=== PATIENT | female | born 1975 | race Caucasian/White ===

== ENCOUNTER 2024-06-20 21:53 | Inpatient (IN) | payer OTHER, SELFPAY ==
--- NOTE | ~2024-06-20 | FL_ITS ---
EXAMINATION: FL GUIDANCE ONLY HISTORY: PINNING LEFT MIDDLE FINGER COMPARISON: Correlation is made to plain films of the left hand dated 06/20/2024. TECHNIQUE: Fluoroscopy time: 37.4 seconds. Cumulative Dose: 1.0321 mGy. DAP: 0.0624 mGym2 Images: 2. FINDINGS: Images demonstrate internal fixation of the previously seen fracture of the proximal phalanx of the middle finger with 2 pins. FL/FL guidance in OR IMPRESSION: Fluoroscopy during procedure. Please see procedure report for additional information. Electronically signed by: Zak Johnson MD 06/22/2024 08:47 AM [facility] [place]
--- NOTE | ~2024-06-20 | XR_ITS ---
CLINICAL HISTORY: swelling, bit by dog 3 view left hand Comparison: None Findings: Angulated fracture of the proximal 3rd phalanx. Soft tissue swelling and mild subcutaneous gas surrounds the 3rd metacarpophalangeal joint. No radiopaque foreign body. IMPRESSION: 1. Angulated fracture of the proximal 3rd phalanx. 2. Soft tissue swelling and mild subcutaneous gas surrounds the 3rd metacarpophalangeal joint. This document has been electronically signed by: Prakash Greenberg MD, PHD on 06/20/2024 23:10:34
[2024-06-20 22:00] VITALS: BP 160/87; PULSE 87; RESP 20; TEMP 36.6; O2SAT 100; BMI 29.0
[2024-06-21] VITALS (10 sets, daily range): BP systolic 113–169; BP diastolic 58–95; PULSE 56–86; RESP 15–20; TEMP 36.3–37.1; O2SAT 96–100; BMI 33.7
[2024-06-21 01:04] LABS: MANUAL DIFF FLAG NO
[2024-06-21] MEDS: Ampicillin Sodium/Sulbactam Na 3 GM in 0.9 % Sodium Chloride 100 ML IV ×4 (01:04→20:10)
[2024-06-21] MEDS: Diphth,Pertus(ACell),Tet Adult 0.5 ML SYRINGE IM (01:04)
[2024-06-21 01:05] LABS: Basophils Absolute Auto 0.1 X10*3/uL (0.0-0.2); Basophils Percent Auto 0.6 % (0-2); Eosinophils Absolute Auto 0.2 X10*3/uL (0.0-0.4); Eosinophils Percent Auto 1.3 % (0-4); Hemoglobin 12.9 g/dl (12.0-16.0); Imm Gran Abs Auto 0.05 X10*3/uL (0.00-0.03); Imm Gran Pct Auto 0.4 % (0.0-0.4); Lymphocytes Percent Auto 15.5 % (20-40); Mean Corpuscular HGB Conc 33.1 g/dl (31.0-35.0); Mean Corpuscular Hemoglobin 29.7 pg (27.0-33.0); Mean Corpuscular Volume 89.7 fL (80.0-98.0); Mean Platelet Volume 10.8 fL (9.4-12.3); Monocytes Absolute Auto 0.6 X10*3/uL (0.1-1.2); Monocytes Percent Auto 4.8 % (2-11); Neutrophils Absolute Auto 10.1 x10*3/uL (2.0-8.3); Neutrophils Percent Auto 77.4 % (45-73); Platelet Count 264 X10*3/uL (160-400); Red Blood Count 4.35 X10*6/uL (4.20-5.50); Red Cell Distribution Width 13.9 % (11.0-16.0)
[2024-06-21 01:10] LABS: INTERNATIONAL NORM RATIO 0.9 (0.9-1.1); Prothrombin Time 10.8 SEC (10.9-12.4)
[2024-06-21 01:26] LABS: Anion Gap 12 (12-20); Blood Urea Nitrogen 12 mg/dL (9-16); Calcium 9.7 mg/dL (8.4-10.2); Carbon Dioxide 24 mmol/L (22-29); Chloride 107 mmol/L (96-108); Creatinine Clr Calc Pharmacy 95.8; Estimated Glomerular Filt Rate > 60; Glucose Random 109 mg/dL (60-115); Potassium 3.5 mmol/L (3.3-5.1); Sodium 139 mmol/L (135-145)
[2024-06-21 01:31] LABS: HCG Quantitative < 2 mIU/mL
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
[2024-06-21] MEDS: Ibuprofen 600 MG TABLET PO (01:55)
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
[2024-06-21] MEDS: HYDROmorphone HCl 0.5 MG/0.5 ML SYRINGE IVPUSH (04:22)
[2024-06-21] MEDS: Ketorolac Tromethamine 30 MG/ML VIAL IVPUSH ×4 (04:22→21:48)
[2024-06-21] MEDS: 0.9 % Sodium Chloride Flush 3 ML SYRINGE IVFLUSH (08:00)
--- NOTE | 2024-06-21 08:34 | PHA.MEDREC ---
Addendum entered by Beni Christine RPh 06/21/24 09:59: Med rec was reviewed by long. Original Note: Pharmacy Consult ? Medication Reconciliation Pharmacy has completed the medication reconciliation. Spoke with patient to confirm.
[2024-06-21] MEDS: HYDROmorphone HCl 1 MG/ML SYRINGE 0.5 MG IVPUSH ×2 (09:10→20:16)
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
--- NOTE | 2024-06-21 10:04 | P.EN_ITS ---
Event Note Date of Service: 06/21/24 Event Note: The patient was seen and examined. Labs, medications, and imaging were reviewed and discussed with orthopedics and the admitting physician. Assessment: * Angulated fracture of the proximal third phalanx. * Soft tissue swelling with mild subcutaneous gas surrounding the third metacarpophalangeal joint ( from trauma sustained while attempting to break up a dog fight). Plan: * Proceed with surgical intervention today. * Continue close monitoring for signs of infection or complications. * Antibiotic coverage with ampicillin today and change to Augmentin tomorrow for 5 days * Pain management and post-operative care per ortho recommendations. Time Spent With Patient Time: Total time managing care of this patient today ____ minutes.
--- NOTE | 2024-06-21 10:04 | PM.EVENT ---
Event Note Date of Service: 06/21/24 Event Note: The patient was seen and examined. Labs, medications, and imaging were reviewed and discussed with orthopedics and the admitting physician. Assessment: Angulated fracture of the proximal third phalanx. Soft tissue swelling with mild subcutaneous gas surrounding the third metacarpophalangeal joint ( from trauma sustained while attempting to break up a dog fight). Plan: Proceed with surgical intervention today. Continue close monitoring for signs of infection or complications. Antibiotic coverage with ampicillin today and change to Augmentin tomorrow for 5 days Pain management and post-operative care per ortho recommendations. Time Spent With Patient Time: Total time managing care of this patient today ____ minutes.
--- NOTE | 2024-06-21 12:14 | MHC.CM.PN ---
CM met with Patient at bedside, in the ED. Patient is independent and home/self care is her goal. CM has initiated and will follow for dc planning. PCP is from [facility] (a new female doctor she has not seen yet and cannot recall the name). Patient lives in a house with her Boyfriend (who will transport to home at dc) and her 16 year old Son.
--- NOTE | 2024-06-21 13:10 | PC.NURSE ---
Report given to [facility] RN for transfer to OR for procedure within the hour.
--- NOTE | 2024-06-21 13:21 | MHC.SHP ---
Pre-Procedural Eval Section A - 24 Hr Update-Section A only Date of Service: 06/21/24 The patient is an INPATIENT: No Changes since office visit: No Cold of Flu in the past 2 weeks, No New Medical Problems, No Changes in Medication and No Patient answered all questions The patient has been examined within 24 hours of the surgical procedure. The History & Physical has been completed within 30 days and I have reviewed it.: Yes Section B - Complete if H&P > 30 days Chief Complaint: left middle finger fracture Allergies: Allergies Allergy/AdvReac Type Severity Reaction Status Date / Time No Known Allergies Allergy Verified 06/20/24 22:02 Review of Systems Review of Systems Comment: Radiographs: Left middle finger proximal phalanx fracture, apex volar Patient was alert oriented and in no acute distress. Normal sensation to the tips of all digits and cap refill brisk. Visible apex volar deformity of the left middle finger proximal phalanx She has bite wounds directly over the fracture site at the proximal phalanx and then over the dorsal aspect of the middle phalanx of the middle finger It is hard to see if she has other wounds right now as she has some dried blood on her hand. She was able to actively flex and extend the other digits and her wrist without pain. Plan Diagnosis/Plan: Unchanged I have reviewed the history and physical and performed a pertinent physical examination on my patient. No changes have occurred unless specified. Assessment and plan: 1. Left middle finger open proximal phalanx fracture, status post dog bite Date of injury today The risks and benefits of operative treatment were discussed with the patient and the patient wishes to proceed with surgery. These risks include, but are not limited to risk of damage to blood vessels, nerves, tendons, infection, recurrence, incomplete relief of preoperative symptoms, persistent pain, possible need for further surgery and the risks associated with regional blocks and anesthesia. The plan is to take the patient to the operating room today for the following procedures: 1. I&D open proximal phalanx fracture 2. Left middle finger proximal phalanx open reduction internal fixation All of the preoperative paperwork including the consent was filled out today. All the patient's questions were answered. Time Spent With Patient Time: Total time managing care of this patient today ____ minutes.
--- NOTE | 2024-06-21 13:33 | W.PM.OPN ---
Operative Note Operative Note Date of Service: 06/21/24 Narrative: Operative Note Narrative: Preop diagnosis: 1. Left middle finger open proximal finger fracture Postop diagnosis: 1. Left middle finger open proximal phalanx shaft fracture 2. Left ring finger open dorsal PIP joint Procedure: 1. Left middle finger I and D of open proximal phalanx fracture 2. Left middle finger proximal phalanx fracture open reduction internal fixation 3. Left ring finger I and D open PIP joint Surgeon: Dione Palacios MD [employer] Specialist: Kemar DEAN Anesthesia: General Anesthesia Findings: finger fracture Implants: 0.045 K-wires times 2 Tourniquet time: None EBL: Minimal Specimen: None Drains: None Complications: None Disposition: Brought to the recovery room in stable condition Plan: Admit for IV antibiotics overnight Anticipate discharge in a.m. on 10 days of oral antibiotics, Augmentin Follow-up in next week days for a wound check, postop radiographs and for placement in a short-arm finger spica cast or splint Anticipate K-wire removal in 4 weeks based on interval bony healing Educate the patient that full fracture healing anticipated in approximately 8-12 weeks. Indications: The patient is 48 years old with a left middle finger open proximal phalanx fracture status post dog bite today . The risks and benefits of operative treatment, including but not limited to risk of damage to blood vessels, nerves, tendons, infection, recurrence, delayed or nonunion of fracture, persistent pain or numbness, incomplete resolution of preoperative symptoms, or need for further surgery were discussed with the patient and they wished to proceed with surgery. Procedure: Once consent was obtained patient was brought back to the operating suite and placed in the operating table in a supine position. . Perioperative antibiotics and general anesthesia was administered by the anesthesia team. A tourniquet was applied to the proximal aspect of the left upper extremity and the limb was prepped and draped in a standard surgical fashion. The tourniquet was not inflated during the case. The FluoroScan was used during the case to assist with our fracture reduction and placement of all implants. Upon further examining the wound on the dorsal aspect of the ring finger PIP joint, it appears the bite wound entered the PIP joint. I therefore slightly open the PIP joint further and copiously irrigated the PIP joint with normal saline using a 10 mL syringe and an Angiocath. My attention was then turned to the left middle finger. She had an approximately 1.5 cm laceration over the ulnar side of the proximal phalanx. She had another small wound on the radial volar base of the middle finger, and a 3rd wound through the skin at the dorsal aspect of the middle phalanx. All of the irrigations were copiously irrigated with normal saline. The laceration on the side of the proximal phalanx was extended proximally approximately 5 mm . We then dissected down to the level of the fracture and the fracture was debrided using a curette. The fracture and dog bite wounds were then copiously irrigated with normal saline using a 10 mL syringe and an Angiocath. Once satisfied with our I&D I then turned our attention to the fracture. An open reduction was performed on the left middle finger proximal phalanx fracture. I placed a 0.045 K-wire through the ulnar base of the left middle finger proximal phalanx. This was advanced to the fracture site. I then performed an open reduction of the proximal phalanx fracture. The K-wire was then advanced across the fracture site and down the shaft of the proximal phalanx. A 2nd 0.045 K-wire was placed into the radial base of the left middle finger proximal phalanx. This was then advanced distally across the fracture site and into the shaft of the proximal phalanx. Fracture alignment was assessed clinically for angular and rotational alignment. Once satisfied the pins were bent cut short and had pin caps applied. Final fluoroscopic images were then obtained. The wounds were copiously irrigated with normal saline. A digital block was performed with some 1% lidocaine with epinephrine for postop pain control. Some of the bite wounds were loosely closed, to allow for any drainage, with 5 0 Prolene suture. A Sterile dressing and short volar splint extending from the tips of all fingers to the forearm was applied. The patient appears to have tolerated the procedure well and with no complications. All digits were well vascularized at the conclusion of the case.
--- NOTE | 2024-06-21 13:35 | HO.ANESPROP2 ---
HPI - Anesthesia Eval Consult details Narrative: i and D [facility] Active Problems Active Problems: All Active Problems Open fracture of finger of left hand (Acute) Past Medical History Functional capacity: independent ambulation Family History Family history of problems with anesthesia: No Surgical History Surgical History History of appendectomy H/O knee surgery History of Problems with Anesthesia: No Social History Social History Patient Tobacco Use Status: Current someday Tobacco user service: No Meds Allergies Allergy/AdvReac Type Severity Reaction Status Date / Time No Known Allergies Allergy Verified 06/20/24 22:02 Active Medications: Current Medications Acetaminophen (Acetaminophen 325 Mg Tablet) 650 mg PO Q6H PRN PRN Reason: Pain, Mild 1-3,fever,headache Calcium Carbonate (Calcium Carbonate 750 Mg Tab.Chew) 750 mg PO Q4H PRN PRN Reason: Heartburn Enoxaparin Sodium (Enoxaparin Sodium 40 Mg/0.4 Ml Syringe) 40 mg SUBCUT DAILY ELROY Hydromorphone HCl (Hydromorphone Hcl 1 Mg/Ml Syringe) 0.5 mg IVPUSH Q4H PRN; Protocol PRN Reason: Pain, Severe (Pain Scale 7-10) Last Admin: 06/21/24 09:10 Dose: 0.5 mg Ampicillin Sodium/Sulbactam (Sodium 3 gm/ Sodium Chloride) 100 mls @ 200 mls/hr IV Q6H ELROY Ketorolac Tromethamine (Ketorolac Tromethamine 30 Mg/Ml Vial) 30 mg IVPUSH Q6H ELROY Stop: 06/21/24 22:01 Last Admin: 06/21/24 09:10 Dose: 30 mg Magnesium Hydroxide (Milk Of Magnesia 30 Ml Oral.Susp) 30 ml PO DAILY PRN PRN Reason: Constipation Melatonin (Melatonin 3 Mg Tablet) 6 mg PO BEDTIME PRN PRN Reason: Insomnia Ondansetron HCl (Ondansetron Hcl 4 Mg/2 Ml Vial) 4 mg IVPUSH Q8H PRN PRN Reason: Nausea and Vomiting Oxycodone HCl (Oxycodone Hcl Immed Release 5 Mg Tablet) 5 mg PO Q6H PRN PRN Reason: Pain, Moderate(Pain Scale 4-6) Senna (Sennosides 8.6 Mg Tablet) 17.2 mg PO BEDTIME PRN PRN Reason: Constipation Sodium Chloride (0.9 % Sodium Chloride Flush 3 Ml Syringe) 3 ml IVFLUSH QSHIFT ELROY Last Admin: 06/21/24 08:00 Dose: 3 ml Home Medications ?Medication ?Instructions ?Recorded ?Confirmed ?Last Taken ?Type ibuprofen 200 mg tablet 800 mg PO BID PRN Pain 06/21/24 06/21/24 Unknown History Exam Height,Weight and Vital Signs: Height 5 ft 6 in Weight 81.647 kg Last Vital Signs Temp 98.7 F 06/21/24 13:30 Pulse 80 06/21/24 13:30 Resp 20 06/21/24 13:30 BP 133/79 06/21/24 13:30 Pulse Ox 98 06/21/24 13:30 O2 Del Method Room Air 06/21/24 13:30 Pertinent Lab Results Pertinent Lab Results: Laboratory Tests 06/21/24 00:59 WBC 13.0 H RBC 4.35 Hgb 12.9 Hct 39.0 MCV 89.7 MCH 29.7 MCHC 33.1 RDW 13.9 Plt Count 264 MPV 10.8 Immature Gran % (Auto) 0.4 Neut % (Auto) 77.4 H Lymph % (Auto) 15.5 L [place] % (Auto) 4.8 Eos % (Auto) 1.3 Baso % (Auto) 0.6 Lymph # (Auto) 2.0 [place] # (Auto) 0.6 Eos # (Auto) 0.2 Baso # (Auto) 0.1 Abs Immat Gran (auto) 0.05 H Absolute Neuts (auto) 10.1 H Absolute Nucleated RBC 0.000 Nucleated RBC % (auto) 0.0 PT 10.8 L INR 0.9 Sodium 139 Potassium 3.5 Chloride 107 Carbon Dioxide 24 Anion Gap 12 BUN 12 Creatinine 0.79 Estim Creat Clear Calc 95.8 Estimated GFR > 60 Random Glucose 109 Calcium 9.7 Beta HCG, Quant < 2 Airway Mallampati Class: II TM Dist: >3cm Neck ROM: Full Heart: rrr Lungs: cta Assessment and Plan Assessment Anesthesia Assessment: Anesthesia Plan Discussed Final Anesthetic Review Family History of Problems with Anesthesia: No History of Problems with Anesthesia: No NPO: Yes ASA Class: I Final Preanesthetic Review: No Changes in Pt Med Stat, Meds/Allgs Chart Reviewed and Consent Obtained/Reviewed Patient Risk: Low Procedure Risk: Low Anesthetic Plan Anesthetic Plan: GA Disposition: Standard PACU
[2024-06-21] MEDS: ceFAZolin Sodium/Dextrose,Iso 2 GM/50 ML PIGGYBACK IV (13:44)
[2024-06-22] MEDS: 0.9 % Sodium Chloride Flush 3 ML SYRINGE IVFLUSH (00:52)
[2024-06-22] MEDS: Ampicillin Sodium/Sulbactam Na 3 GM in 0.9 % Sodium Chloride 100 ML IV (01:23)
[2024-06-22 07:39] VITALS: BP 119/79; PULSE 61; RESP 16; TEMP 36; O2SAT 99
[2024-06-22] MEDS: oxyCODONE HCl Immed Release 5 MG TABLET PO (07:57)
[2024-06-22] MEDS: Amoxicillin/Potassium Clav 875 MG TABLET PO (07:57)
--- NOTE | 2024-06-22 08:17 | PM.PNORT ---
Subjective Subjective Date of Service: 06/22/24 Interval history: Postop day 1 status post I and D and ORIF of left middle finger, as well as I and D of PIP joint of left ring finger Patient resting comfortably in bed this morning Splint in place Pain well managed No acute events overnight No other acute complaints or concerns at this time Physical Exam Vital Signs: Vital Signs: Last Vital Signs Temp 96.8 F 06/22/24 07:39 Pulse 61 06/22/24 07:39 Resp 16 06/22/24 07:39 BP 119/79 06/22/24 07:39 Pulse Ox 99 06/22/24 07:39 O2 Del Method Room Air 06/22/24 07:39 O2 Flow Rate 6 06/21/24 14:53 BMI result Body Mass Index 33.7 Extrem: Other: Dressing and splint on left hand clean, dry, intact No evidence of surrounding erythema, ecchymosis No evidence of infection Distal sensation intact Capillary refill brisk Procedures Date of Service Date of Service: 06/22/24 Progress Note: A&P Assessment and plan (1) Open fracture of finger of left hand: Status: Acute Plan 1. Status post I and D of left middle and ring fingers, and ORIF of left middle finger DOS 06/21/2024 Patient appears to be recovering well postoperatively Patient is educated about the typical recovery course Patient is educated to keep the splint clean, dry, intact at all times, and to call our office if it gets wet or dirty Patient will follow-up with us in 2 weeks for splint removal and placement into a cast Patient was amenable to this plan Patient was cleared for discharge from orthopedic perspective, should be on Augmentin upon discharge Time Spent With Patient Time: Total time managing care of this patient today ____ minutes. Quality Stroke Does the patient have a stroke diagnosis?: No VTE Prior VTE?: No VTE Risk Level:: Medical - moderate - high VTE Device Contraindication: Treatment Not Indicated VTE Drug Contraindication: N/A - Med Ordered
--- NOTE | 2024-06-22 08:46 | P.DS_ITS ---
DS: Providers Provider Date of Service: 06/22/24 Date of admission: 06/21/24 03:56 Date of discharge: 06/22/24 Primary care physician: None Physician Consults: 06/21/24 07:29 Consult to Orthopedics Routine Consulting Provider: [facility] [place] Orthopedic Surgeons Reason for consultation: open fracture left middle finger DS: Diagnosis Discharge Diagnosis (1) Open fracture of finger of left hand: Status: Acute DS: Summary Hospital Course Hospital Course: admission hpi Chief Complaint: Dog bite to left middle finger and now with pain and swelling Patient is a 48 year old female with no significant past medical history who presented to the emergency room for evaluation after sustaining a dog bite to her left middle finger. She has 2 dogs at home that were fighting and she got i n between them to try break up the fight and unfortunately 1 of her dogs bit her left hand. She sustained a puncture wound to the left middle and ring fingers with resultant bleeding and deformity to her left middle finger which prompted her to come to the emergency room for evaluation. She reports that both the dog the up-to-date on all vaccinations including rabies. She however was not up-to- date on her tetanus vaccine and so got this in the emergency room. Initial imaging studies obtained in the emergency room revealed an angulated fracture of the proximal 3rd phalanx with a soft tissue swelling and mild subcutaneous gas surrounding the 3rd metacarpophalangeal joint. She was started on empiric antibiotics (Unasyn) and admission requested for continued care. Hospital course: The patient was admitted for the management of a dog bite with an open fracture of the left middle finger. She received empiric antibiotic therapy with Unasyn and underwent surgery, including: * Incision and drainage (I&D) of the open proximal phalanx fracture of the left middle finger * Open reduction and internal fixation (ORIF) of the left middle finger proximal phalanx fracture * I&D of the open PIP joint of the left ring finger She is recovering well postoperatively and will be transitioned to oral Augmentin to complete a 7-day course of antibiotics. Follow-up with orthopedics is scheduled for next week. Time Attestation Discharge Coordination Time (in mins): 35 Quality: Safe Use of Opioids Does Pt have an Active Cancer Diagnosis on the Problem List?: No Quality: Stroke Does the patient have a stroke diagnosis?: No Physical Exam Vital Signs: Vital Signs: Last Vital Signs Temp 96.8 F 06/22/24 07:39 Pulse 61 06/22/24 07:39 Resp 16 06/22/24 07:39 BP 119/79 06/22/24 07:39 Pulse Ox 99 06/22/24 07:39 O2 Del Method Room Air 06/22/24 07:39 O2 Flow Rate 6 06/21/24 14:53 BMI result Body Mass Index 33.7 Const: Other: General: AO X 3, no acute distress Resp: CTA bilateral CVS: S1,S2,RRR GI: +BS, NT, no distention Skin: No rash ext: the left hand is splinted Neuro: motor grossly intact Psych: appropriate affect Discharge Plan Discharge Anticipated Discharge Date/Time: 06/22/24 09:27 Patient Disposition: Home, Self-Care Discharge Diagnosis: Open fracture of left middle finger due to dog bite Referrals: Physician,None [Primary Care Provider] - 1 Week Discharge Medications: New amoxicillin-pot clavulanate 875-125 mg Tablet 1 tab PO Q12H Qty: 10 0RF oxycodone 5 mg Tablet 5 mg PO Q6H PRN (Reason: Pain, Moderate(Pain Scale 4-6)) Qty: 14 0RF Rx Instructions: Partial Fill upon patient request. Continued ibuprofen 200 mg Tablet 800 mg PO BID PRN (Reason: Pain) Discharge Orders: Discharge Order (Routine); Ordered 06/22/24 Ordered By: Paco Burroughs Diet: Advance to usual diet Activity on Discharge: As tolerated Stand Alone Forms: Patient Portal Discharge page Print Language: Azeri Care Plan Goals: recovery from dog bite and fracture of left middle finger Health Concerns: same as above Plan of Treatment: take Augmentin as recommended and follow up with Dr. Palacios keep splint as recommended by orthopedic surger Assessment: see above
[2024-06-22 09:16] VITALS: BP 145/65; PULSE 71; RESP 18; TEMP 36.6; O2SAT 97
--- NOTE | 2024-06-22 09:51 | MHC.CM.PN ---
Patient medically cleared for dc home self care via private transport.
== END 2024-06-22 11:25 | disposition home or self-care (01) | DRG 514 ==
LOC: HO.ED 06-21 02:10 → HO.EDOVER 06-21 04:36 → HO.S3 06-21 14:50
PROVIDERS: Orthopaedic Surgery; Physician Assistant; Admitting Provider Internal Medicine; Emergency Provider Emergency Medicine; Visit Provider Internal Medicine
PROC: 0PSV04Z Reposition Left Finger Phalanx with Internal Fixation Device, Open Approach (ICD-10-PCS; CPT 26735; principal; 2024-06-21 13:00)
PROC: 0PSV04Z Reposition Left Finger Phalanx with Internal Fixation Device, Open Approach (ICD-10-PCS; CPT 26735; 2024-06-21 13:00)
DX: S62.613B Displaced fracture of proximal phalanx of left middle finger, initial encounter for open fracture (principal); S61.255A Open bite of left ring finger without damage to nail, initial encounter; W54.0XXA Bitten by dog, initial encounter; F17.210 Nicotine dependence, cigarettes, uncomplicated; Z71.6 Tobacco abuse counseling
CPT/HCPCS: 26735; 26080; 36415; 73120; 80048; 84702; 85025; 85610; 90715; 99221; 99285; J0131; J0295; J0690; J1100; J1171; J1885; J2003; J2004; J2405; J2704; J3010

== ENCOUNTER → 2024-06-20 22:15 | Outpatient (BNV) | payer OTHER, SELFPAY | PROVIDERS: Visit Provider General Practice | DX: S62.613B Displaced fracture of proximal phalanx of left middle finger, initial encounter for open fracture (principal) | CPT/HCPCS: 73120 ==

== ENCOUNTER → 2024-06-21 03:56 | Outpatient (BNV) | payer OTHER, SELFPAY | PROVIDERS: Admitting Provider Internal Medicine; Emergency Provider Emergency Medicine | DX: S62.609B Fracture of unspecified phalanx of unspecified finger, initial encounter for open fracture (principal) | CPT/HCPCS: 26080; 26735; 99024; 99222 ==

== ENCOUNTER → 2024-06-21 03:56 | Outpatient (BNV) | payer OTHER, SELFPAY | PROVIDERS: Admitting Provider Internal Medicine; Emergency Provider Emergency Medicine; Visit Provider Internal Medicine | DX: S62.613B Displaced fracture of proximal phalanx of left middle finger, initial encounter for open fracture (principal); W54.0XXA Bitten by dog, initial encounter | CPT/HCPCS: 99223; 99239; 99499 ==

== ENCOUNTER 2024-07-05 09:14 | Outpatient (REF) | payer OTHER, SELFPAY | END 2024-07-05 09:15 | disposition home or self-care (01) | LOC: HO.HOSX 09:14 | DX: Z13.89 Encounter for screening for other disorder (principal) ==

== ENCOUNTER 2024-07-06 08:31 | Outpatient (REF) | payer OTHER, SELFPAY ==
--- NOTE | ~2024-07-06 | XR_ITS ---
EXAMINATION: XR HAND, LEFT CLINICAL INFORMATION: M79.642 - Pain in left hand COMPARISON: 06/20/2024. TECHNIQUE: PA, lateral, and oblique views of the left hand. FINDINGS: There has been 2 K wires placed transfixing the comminuted, mildly displaced, intra-articular fracture of the proximal third metacarpal. There has been hoahaoism of gross anatomic alignment. Fracture lines are still well visualized, without definite evidence of healing. No articular step-off at the MCP joint level. Previously seen flexion contracture of the third digit has resolved. Soft tissue swelling/laceration involving the proximal radial third digit. XR/XR hand LT min 3V IMPRESSION: Status post K wire pinning of comminuted intra-articular proximal third metacarpal fracture without complication evident. There is been hoahaoism of gross anatomic alignment. Electronically signed by: Dhruv Wright MD 07/09/2024 09:33 AM EDT
== END 2024-07-06 08:32 | disposition home or self-care (01) ==
LOC: HO.HOSX 08:31
DX: M79.642 Pain in left hand (principal); S62.602B Fracture of unspecified phalanx of right middle finger, initial encounter for open fracture
CPT/HCPCS: 29085; 73130

== ENCOUNTER 2024-07-06 13:17 | Outpatient (AMB) | payer OTHER, SELFPAY ==
[2024-07-06 13:23] VITALS: BMI 33.6
--- NOTE | 2024-07-06 13:23 | A.OFFVIS_ITS ---
Vital Signs 07/06/24 13:23 Height 5 ft 6 in Weight 208 lb BMI 33.6 Intake Visit Reasons: PO I and D and ORIF of left MF, DOS 06/21/2024 Intake Note: Charlotte is a 48 year old right hand dominant female who presents today for a post operative visit after undergoing left middle finger I&D and ORIF as well as left ring finger I&D, DOS: 06/21/[address] Palacios s/p dog bite DOI: 06/20/24. Patient reports occasional numbness and tingling. Patient reports pain at a 6-8 on the pain scale. She continues to take Ibuprofen for pain. Allergies No Known Allergies Allergy (Verified 07/06/24 13:23) HPI HPI PO I and D and ORIF of left MF, DOS 06/21/2024: Details: Charlotte is a 48 year old right hand dominant female who presents today for a post operative visit after undergoing left middle finger I&D and ORIF as well as left ring finger I&D, DOS: 06/21/[address] Palacios s/p dog bite DOI: 06/20/24. Patient reports occasional numbness and tingling. Patient reports pain at a 6-8 on the pain scale. Patient reports that this pain in the began when her cast was removed, and then she was in minimal discomfort removal. She continues to take Ibuprofen for pain. [facility] Surgical History History of appendectomy H/O knee surgery Social History Household Members: Significant Other and Children Housing: House Do you presently have visiting nurse or other home services: No Patient Tobacco Use Status: Current someday Tobacco user Tobacco use type: Cigarette Second Hand Smoke Exposure: No service: No Review of Systems Const All systems reviewed & are unremarkable except as noted in HPI and below Physical Exam Vital Signs: BMI result Body Mass Index 33.6 Extrem Other: Patient is alert, oriented, and in no acute distress. Neuro: Normal sensation of the tips of all digits of the left hand at this time Vascular: Cap refill brisk Pain: Patient does report significant tenderness to palpation at the level of the fracture of the left middle finger ROM: Patient was unable to flex at the MCP joint of the left middle finger due to the presence of pins Skin: Well-healing lacerations noted on the middle and ring fingers of the left hand Pin sites clean, dry, intact, no evidence of infection General: No ecchymosis, erythema, or evidence of infection. Psych: Appears grossly normal Affect normal Attitude cooperative Office Procedures Casting/Splints 19192-Rudt/Wrist Cast Application Procedure code (CPT) selection complete Results Reviewed Results Reviewed: X-rays obtained in the office today and independently reviewed by me, Kemar Figueroa PA-C, demonstrate surgically reduced fracture of the proximal phalanx of the left middle finger with all orthopedic hardware in place and in satisfactory clinical alignment. Assessment & Plan Assessment & Plan (1) Open fracture of finger of left hand: Code(s): S62.609B - Fracture of unspecified phalanx of unspecified finger, initial encounter for open fracture Category: Medical Plan 1. Open fracture of left middle finger 2 laceration of the left finger Status post I and D and ORIF DOS 06/21/2024 Patient appears to be recovering well postoperatively Patient is educated about the typical recovery course At this time, patient was placed into a 3 finger ulnar gutter cast Patient is educated on proper cast care and precautions 2 lb weight limit in left hand Patient will follow-up in 2 weeks with repeat x-rays and cast removal, anticipate pulling pins at that time, sooner with any acute concerns Orders: Orders XR hand LT min 3V Today M79.642 - Pain in left hand Medications: Discontinued amoxicillin-pot clavulanate 875-125 mg Discontinued Reason: Patient no longer taking 1 tab PO Q12H 10 tabs 0RF Coding Level of Care Code Global (87889) Diagnoses Open fracture of finger of left hand S62.609B CPT Codes Casting - CPT: 63422-Ulrk/Wrist Cast Application ([id number])
== END 2024-07-06 14:19 | disposition home or self-care (01) ==
LOC: HO.HOS 13:18
DX: S62.613B Displaced fracture of proximal phalanx of left middle finger, initial encounter for open fracture (principal); Z48.89 Encounter for other specified surgical aftercare
CPT/HCPCS: 29085; 99024

== ENCOUNTER → 2024-07-06 13:18 | Outpatient (BNV) | payer OTHER, SELFPAY | PROVIDERS: Visit Provider Radiology Diagnostic Radiology | DX: M79.642 Pain in left hand (principal) | CPT/HCPCS: 73130 ==

== ENCOUNTER 2024-07-09 16:00 | Outpatient (REF) | payer OTHER, SELFPAY | END 2024-07-09 16:01 | disposition home or self-care (01) | LOC: HO.HOSX 16:00 | DX: Z13.89 Encounter for screening for other disorder (principal) ==

== ENCOUNTER 2024-07-10 08:19 | Outpatient (AMB) | payer OTHER, SELFPAY ==
--- NOTE | 2024-07-10 08:47 | MHC.OFFVIS ---
Intake Visit Reasons: PO I &D and ORIF of left MF, DOS 06/21/2024 Intake Note: Charlotte is a 48 year old right hand dominant female who presents today for a post operative visit after undergoing left middle finger I&D and ORIF as well as left ring finger I&D, DOS: 06/21/[address] Dione Palacios s/p dog bite DOI: 06/20/24. On 07/06/24 patient was placed into a 3 finger ulnar gutter cast. She expresses intermittent sharp piercing stabbing pain at the base of her PF. She is requesting a prescription for her pain either Tramadol or Tylenol., Allergies No Known Allergies Allergy (Verified 07/10/24 08:48) HPI HPI PO I &D and ORIF of left MF, DOS 06/21/2024: Details: Charlotte is a 48 year old right hand dominant female who presents today for a post operative visit after undergoing left middle finger I&D and ORIF as well as left ring finger I&D, DOS: 06/21/[address] Dione Palacios s/p dog bite DOI: 06/20/24. On 07/06/24 patient was placed into a 3 finger ulnar gutter cast. She expresses intermittent sharp piercing stabbing pain at the base of her IF. She is requesting a prescription for her pain either Tramadol or Tylenol., [facility] Surgical History History of appendectomy H/O knee surgery Social History Household Members: Significant Other and Children Housing: House Do you presently have visiting nurse or other home services: No Patient Tobacco Use Status: Current someday Tobacco user Tobacco use type: Cigarette Second Hand Smoke Exposure: No service: No Review of Systems Const All systems reviewed & are unremarkable except as noted in HPI and below Physical Exam Extrem Other: Patient is alert, oriented, and in no acute distress. Neuro: Normal sensation of the tips of all digits of the left hand at this time Vascular: Cap refill brisk Pain: Patient does report tenderness to palpation at the level of the fracture of the left middle finger ROM: Patient was unable to flex at the MCP joint of the left middle finger due to the presence of pins Skin: Well-healing lacerations noted on the middle and ring fingers of the left hand Pin sites clean, dry, intact There is some evidence of mild redness around the more ulnar pin site, appears to be more consistent with irritation General: No ecchymosis or other evidence of infection. Psych: Appears grossly normal Affect normal Attitude cooperative Office Procedures Casting/Splints 62815-Dfsd/Wrist Cast Application Procedure code (CPT) selection complete Results Reviewed Results Reviewed: X-rays obtained in the office today and independently reviewed by me, Kemar Figueroa PA-C, demonstrate surgically reduced fracture of the proximal phalanx of the left middle finger with all orthopedic hardware in place and in satisfactory clinical alignment. Assessment & Plan Assessment & Plan (1) Open fracture of finger of left hand: Code(s): S62.609B - Fracture of unspecified phalanx of unspecified finger, initial encounter for open fracture Category: Medical Plan 1. Open fracture of left middle finger 2 laceration of the left finger Status post I and D and ORIF DOS 06/21/2024 Patient appears to be recovering well postoperatively Patient is educated about the typical recovery course Out of an abundance of caution due to redness, patient was prescribed a short course of Augmentin for 7 days At this time, patient was re-placed into a 3 finger ulnar gutter cast Patient is educated on proper cast care and precautions 2 lb weight limit in left hand Patient will follow-up for previously scheduled appointment, anticipate pulling pins at that time, sooner with any acute concerns Orders: Orders XR hand LT min 3V Today M79.642 - Pain in left hand Medications: New amoxicillin-pot clavulanate 875-125 mg 1 tab PO BID 14 tabs 0RF 7 days Discontinued oxycodone Partial Fill upon patient request. Discontinued Reason: Patient no longer taking 5 mg PO Q6H PRN 14 tabs 0RF Pain, Moderate(Pain Scale 4-6) Coding Level of Care Code Global (60263) Diagnoses Open fracture of finger of left hand S62.609B CPT Codes Casting - CPT: 99466-Ugbd/Wrist Cast Application ([id number])
== END 2024-07-10 10:05 | disposition home or self-care (01) ==
LOC: HO.HOS 08:20
DX: S62.613B Displaced fracture of proximal phalanx of left middle finger, initial encounter for open fracture (principal)
CPT/HCPCS: 29085; 99024

== ENCOUNTER → 2024-07-10 08:22 | Outpatient (BNV) | payer OTHER, SELFPAY | PROVIDERS: Visit Provider Radiology Diagnostic Radiology | DX: M79.642 Pain in left hand (principal) | CPT/HCPCS: 73130 ==

== ENCOUNTER 2024-07-10 10:15 | Outpatient (REF) | payer OTHER, SELFPAY ==
--- NOTE | ~2024-07-10 | XR_ITS ---
EXAMINATION: XR HAND 3 OR MORE VIEWS LEFT HISTORY: M79.642 - Pain in left hand COMPARISON: Comparison is made with the prior examination dated 07/06/2024. FINDINGS: Three views of the left hand are submitted. Osseous mineralization is normal. Again seen is internal fixation of a comminuted fracture of the proximal phalanx of the middle finger with 2 K wires. The fracture lines remain visible. The appearance is not significantly changed from the prior study. The joint spaces are preserved. The soft tissues are unremarkable. XR/XR hand LT min 3V IMPRESSION: Internally fixed comminuted fracture of the proximal phalanx of the middle finger without change. Electronically signed by: Zak Johnson MD 07/10/2024 10:32 AM EDT
== END 2024-07-10 10:16 | disposition home or self-care (01) ==
LOC: HO.HOSX 10:15
DX: S62.603D Fracture of unspecified phalanx of left middle finger, subsequent encounter for fracture with routine healing (principal)
CPT/HCPCS: 29085; 73130

== ENCOUNTER 2024-07-20 14:34 | Outpatient (REF) | payer OTHER, SELFPAY ==
--- NOTE | ~2024-07-20 | XR_ITS ---
EXAMINATION: XR HAND 3 OR MORE VIEWS LEFT HISTORY: M79.642 - Pain in left hand COMPARISON: Comparison is made with the prior examination dated 07/10/2024. FINDINGS: Three views of the left hand are submitted. Osseous mineralization is normal. The patient is again noted to be status post internal fixation of a comminuted fracture of the 3rd proximal phalanx with 2 K wire. The fracture lines remain visible. The joint spaces are preserved. The soft tissues are unremarkable. XR/XR hand LT min 3V IMPRESSION: Internal fixation of a comminuted fracture of the proximal phalanx of the middle finger without change. Electronically signed by: Zak Johnson MD 07/23/2024 12:50 PM EDT
--- OUTSIDE RECORDS SUMMARY | 2024-07-20 16:07 | XMS_ITS | Data Portability ---
Author Organization [facility], [address] Address [address] [place] [address] Assessment No assessment recorded. Plan of Treatment Reminders Order Date Submit Date Provider Last Modified By Organization Details Last Modified Time Details Appointments None recorded. Lab None recorded. Referral None recorded. Procedures None recorded. Surgeries None recorded. Imaging None recorded. Medication Orders benzonatate 200 mg capsule 2023 [facility]/Pharmacy #[id number], [address] [facility], [place], [address], 4 10:49:40 Patient TargetsNo targets recorded. Patient Instructions Encounter Date Encounter Id Patient Instructions Last Modified By Organization Details Last Modified Time 03/02/2024 [id number] upper respirator y infection (cold): care instructions [email or web address] Not available 03/02/2024 10:49:38 Reason for Referral None Reported. Problems No Known Problems Medical Equipment None Reported. Allergies No known drug allergies Medications Name Sig Start Date Stop Date Status Note LastModified by Organization Details LastModified Time benzonatate 200 mg capsule Take 1 capsule 3 times a day by oral route for 5 days. active Not Available Not Available Not Avai lable Vitals Date Recorded Body height Body mass index (BMI) Body weight Pain severity - 0-10 verbal numeric rating [Score] - Reported Heart rate Respiratory rate Body temperature Oxygen saturation Oxygen saturation in Arterial blood by Pulse oximetry Systolic blood pressure Diastolic blood pressure Provider Name and Address Organization Details Last Updated DateTime 165.1 cm 31.6 kg/m2 87937.5 5 g 0 66 /min 18 /min 98.7 [degF] 99 % 99 % 124 mm[Hg] 87 mm[Hg] Lisa Ramires DIANNE - [facility] 10:41:18 Social History Question Answer Notes LastModified by Organizat ion Details LastModified Time Tobacco Smoking Status Never Smoker Lisa Ramires DIANNE perez [facility] 03/02/2024 10:40:07 What Is Your Level Of Alcohol Consumption? Occasional Information not available 03/02/2024 Have You Had A Flu Shot This Season? No Information not available 03/02/2024 If No, Would You Like A Flu Shot Today? No Information not available 03/02/2024 What Was The Date Of Your Most Recent Tobacco Screening? 03/02/2024 Information not available 03/02/2024 Do You Use Any Illicit Or Recreational Drugs? Yes Information not available 03/02/2024 Have You Recently Traveled Abroad? No Information not available 03/02/2024 Do You Or Have You Ever Used Any Other Forms Of Tobacco Or Nicotine? No Information not available 03/02/2024 Sex: Unknown Functional Status None recorded. Mental Status None recorded. Family History Relationship Description Onset Age of this Age Resolved Age Notes LastModified by Organization Details LastModified Time Father No current problems or disability Not available 03/02 10:39:55 Mother No current problems or disability Not available 03/02 10:39:55 Medical History No medical history recorded. Gynecological History Statement/Question Response Date of LMP 02/07/2024 Is there any chance of ? No LMP Approximate Obstetrics History GPAL:G 0 P 0 0 0 0 Past Encounters Encounter ID Performer Location Encounter Start Date Encounter Closed Date Diagnosis/Indication Diagnosis SNOMED-CT Code Diagnosis ICD10 Code Diagnosis Note [id number] [address] [place] [address] 05/13/2017 12:24:01 05/13/2017 13:28:53 [id number] DIANNE Singer [address] [place] [address] 03/02/2024 10:36:02 03/02/2024 10:50:18 Upper respiratory infection 52533065 J06.9 Patient presented with symptoms of upper respirator y infection. Advised to drink plenty of fluids, run a cool-mist humidifier in room at night, gargle salt water for sore throat, and get plenty of rest. Patient should avoid over-exert ion and reduce exposure to irritants such as smoke, cold, dry air, and dust.Treat ment currently involves symptomati c relief. Nasal sprays like nasonex and flonase (or generic) as well as neti pot to help clear sinuses Patient may take acetaminop hen or ibuprofen as directed to reduce fever and body aches.Anti histamine and decongesta nt usage was discussed and recommenda tions made.Mague ramirez understood these instructio ns and will follow up in the office in 10 days to 2 weeks if symptoms not improving. ER if any shortness of breath/ash st pain or worsening. Thank you for using [facility] today, please feel free to contact our office if you have any questions or concerns. Health Concerns Section Related Observation LastModified by Organization Detai ls LastModified Time None Recorded Concern Status LastModified by Organization Details LastModified Time None Recorded Advance Directives Directive None Recorded Payers Encounter Date Sequence Insurance Name Policy Number Policy Sheridan Covered Member ID Sheridan Member ID Guarantor Name 05/13/2017 1 [facility] [employer] [facility] [id number] Charlotte Pronovost [id number] Charlotte Pronovost 03/02/2024 1 [facility] [id number] Charlotte Pronovost [id number] Charlotte Pronovost Notes Date Note Type Note Provider Name and Address Organization Details Recorded Time 03/02/2024 text/html 48 y/o female he re with cough for the past month, started, then improved, then got worse a week ago again.Taking OTC meds with some improvement DIANNE Singer [address] [place], [address], [place] - [facility] 03/02/2024 10:52:33 OBGyn Episode No OBEpisode recorded.
--- OUTSIDE RECORDS SUMMARY | 2024-07-20 16:07 | XMS_ITS | Patient Health Record ---
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) Active confirmed Problem 521746604 Equinus deformity of foot (M21.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
== END 2024-07-20 14:35 | disposition home or self-care (01) ==
LOC: HO.HOSX 14:34
DX: M79.642 Pain in left hand (principal)
CPT/HCPCS: 73130

== ENCOUNTER 2024-07-20 14:54 | Outpatient (AMB) | payer OTHER, SELFPAY ==
--- NOTE | 2024-07-20 15:17 | MHC.OFFVIS ---
Intake Visit Reasons: PO I &D and ORIF of left MF, DOS 06/21/2024- w/xray Intake Note: Charlotte is a 48 year old right hand dominant female who presents today for a post operative visit s/p left middle finger I&D of open proximal phalanx fracture, left middle finger proximal phalanx fracture ORIF and left ring finger I&D, PIP joint DOS: 06/21/[address] Dione Palacios. Patient reports soreness in the left hand and stiffness mainly in the left small finger, 3r, and 4th digits. Denies numbness and tingling. She takes ibuprofen as needed for pain however she gets mild relief. Allergies No Known Allergies Allergy (Verified 07/20/24 15:18) HPI HPI PO I &D and ORIF of left MF, DOS 06/21/2024- w/xray: Details: Charlotte is a 48 year old right hand dominant female who presents today for a post operative visit s/p left middle finger I&D of open proximal phalanx fracture, left middle finger proximal phalanx fracture ORIF and left ring finger I&D, PIP joint DOS: 06/21/[address] Dione Palacios. Patient reports soreness in the left hand and stiffness mainly in the left small finger, 3r, and 4th digits. Denies numbness and tingling. She takes ibuprofen as needed for pain however she gets mild relief. [facility] Surgical History History of appendectomy H/O knee surgery Social History Household Members: Significant Other and Children Housing: House Do you presently have visiting nurse or other home services: No Patient Tobacco Use Status: Current someday Tobacco user Tobacco use type: Cigarette Second Hand Smoke Exposure: No service: No Review of Systems Const All systems reviewed & are unremarkable except as noted in HPI and below Physical Exam Extrem Other: Patient is alert, oriented, and in no acute distress. Neuro: Normal sensation of the tips of all digits of the left hand at this time Vascular: Cap refill brisk Pain: Patient does report tenderness to palpation at the level of the fracture of the left middle finger ROM: Patient was unable to flex at the MCP joint of the left middle finger due to the presence of pins Skin: Well-healing lacerations noted on the middle and ring fingers of the left hand Pin sites clean, dry, intact No further redness noted General: No ecchymosis or other evidence of infection. Psych: Appears grossly normal Affect normal Attitude cooperative Results Reviewed Results Reviewed: X-rays obtained in the office today and independently reviewed by me, Kemar Figueroa PA-C, demonstrate surgically reduced fracture of the proximal phalanx of the left middle finger with all orthopedic hardware in place and in satisfactory clinical alignment, however, there is minimal evidence of bony healing Assessment & Plan Assessment & Plan (1) Open fracture of finger of left hand: Code(s): S62.609B - Fracture of unspecified phalanx of unspecified finger, initial encounter for open fracture Category: Medical Plan 1. Open fracture of left middle finger 2 laceration of the left finger Status post I and D and ORIF DOS 06/21/2024 Patient appears to be recovering well postoperatively Patient is educated about the typical recovery course At this time, patient was re-placed into a 3 finger ulnar gutter cast Patient is educated on proper cast care and precautions 2 lb weight limit in left hand Patient will follow-up in 1 week, anticipate pulling pins at that time, sooner with any acute concerns Orders: Orders XR hand LT min 3V Today M79.642 - Pain in left hand Coding Level of Care Code Global (87433) Diagnoses Open fracture of finger of left hand S62.609B
== END 2024-07-20 15:53 | disposition home or self-care (01) ==
LOC: HO.HOS 14:55
DX: S62.609B Fracture of unspecified phalanx of unspecified finger, initial encounter for open fracture (principal)
CPT/HCPCS: 99024

== ENCOUNTER → 2024-07-20 14:59 | Outpatient (BNV) | payer OTHER, SELFPAY | PROVIDERS: Visit Provider Radiology Diagnostic Radiology | DX: S62.613D Displaced fracture of proximal phalanx of left middle finger, subsequent encounter for fracture with routine healing (principal); Z96.7 Presence of other bone and tendon implants | CPT/HCPCS: 73130 ==

== ENCOUNTER 2024-07-27 10:09 | Outpatient (REF) | payer OTHER, SELFPAY ==
--- NOTE | ~2024-07-27 | XR_ITS ---
EXAMINATION: XR HAND, LEFT CLINICAL INFORMATION: M79.642 - Pain in left hand COMPARISON: 07/20/2024 TECHNIQUE: PA, lateral, and oblique views of the left hand. FINDINGS: Redemonstration of fixation of a comminuted, mildly displaced, intra-articular fracture of the proximal third metacarpal with 2 K wires. There is stable gross anatomic alignment. Fracture lines are still well visualized although slightly more sclerotic than previously. No gross bony callus visualized currently. No articular step-off. No additional fracture or bone abnormalities. No joint abnormalities. Persistent mild soft tissue swelling of the third digit involving the dorsum. XR/XR hand LT min 3V IMPRESSION: Internal fixation of a comminuted fracture of the proximal phalanx of the middle finger without change. Electronically signed by: Dhruv Wright MD 07/27/2024 03:02 PM EDT
--- OUTSIDE RECORDS SUMMARY | 2024-07-27 10:52 | XMS_ITS | Data Portability ---
Author Organization [facility], [address] Address [address] [place] [address] Assessment No assessment recorded. Plan of Treatment Reminders Order Date Submit Date Provider Last Modified By Organization Details Last Modified Time Details Appointments None recorded. Lab None recorded. Referral None recorded. Procedures None recorded. Surgeries None recorded. Imaging None recorded. Medication Orders benzonatate 200 mg capsule 2023 [facility]/Pharmacy #[id number], [address] [facility], [place], [address], 4 10:49:40 Patient TargetsNo targets recorded. Patient Instructions Encounter Date Encounter Id Patient Instructions Last Modified By Organization Details Last Modified Time 03/02/2024 [id number] upper respirator y infection (cold): care instructions [...] Last Updated DateTime 165.1 cm 31.6 kg/m2 19152.5 5 g 0 66 /min 18 /min [...] SNOMED-CT Code Diagnosis ICD10 Code Diagnosis Note [id number] [address] [place] [address] 05/13/2017 12:24:01 05/13/2017 13:28:53 [id number] DIANNE Singer [address] [place] [address] 03/02/2024 10:36:02 03/02/2024 10:50:18 Upper respiratory infection [id number] J06.9 Patient presented with symptoms of upper [...] Sheridan Member ID Guarantor Name 05/13/2017 1 [facility] [employer] [facility] [id number] Charlotte Pronovost [id number] Charlotte Pronovost 03/02/2024 1 [facility] [id number] Charlotte Pronovost [id number] Charlotte Pronovost Notes Date Note Type Note Provider Name and Address Organization Details Recorded Time 03/02/2024 text/html 48 y/o female he re with cough for the past month, started, then improved, then got worse a week ago again.Taking OTC meds with some improvement DIANNE Singer [address] [place], [address], [place] - [facility] 03/02/2024 10:52:33 OBGyn Episode No OBEpisode recorded.
--- OUTSIDE RECORDS SUMMARY | 2024-07-27 10:52 | XMS_ITS | Patient Health Record ---
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
== END 2024-07-27 10:10 | disposition home or self-care (01) ==
LOC: HO.HOSX 10:09
DX: M79.642 Pain in left hand (principal); S62.317D Displaced fracture of base of fifth metacarpal bone, left hand, subsequent encounter for fracture with routine healing
CPT/HCPCS: 73130

== ENCOUNTER 2024-07-27 14:38 | Outpatient (AMB) | payer OTHER, SELFPAY ==
[2024-07-27 14:46] VITALS: BMI 33.6
--- NOTE | 2024-07-27 14:46 | MHC.OFFVIS ---
Vital Signs 07/27/24 14:46 Height 5 ft 6 in Weight 208 lb BMI 33.6 Intake Visit Reasons: PO I &D and ORIF of left MF, DOS 06/21/2024- w/xray Intake Note: Charlotte is a 48 year old right hand dominant female who presents today for a post operative visit s/p left middle finger I&D of open proximal phalanx fracture, left middle finger proximal phalanx fracture ORIF and left ring finger I&D, PIP joint DOS: 06/21/[address] Dione Palacios. On 07/20/24 patient was re-placed into a 3 finger ulnar gutter cast. Patient reports tingling, denies numbness. She reports she is doing well. Allergies No Known Allergies Allergy (Verified 07/27/24 14:46) HPI HPI PO I &D and ORIF of left MF, DOS 06/21/2024- w/xray: Details: Charlotte is a 48 year old right hand dominant female who presents today for a post operative visit s/p left middle finger I&D of open proximal phalanx fracture, left middle finger proximal phalanx fracture ORIF and left ring finger I&D, PIP joint DOS: 06/21/[address] Dione Palacios. On 07/20/24 patient was re-placed into a 3 finger ulnar gutter cast. Patient reports tingling, denies numbness. She reports she is doing well. Denies any ongoing pain at this time. [facility] Surgical History History of appendectomy H/O knee surgery Social History Household Members: Significant Other and Children Housing: House Do you presently have visiting nurse or other home services: No Patient Tobacco Use Status: Current someday Tobacco user Tobacco use type: Cigarette Second Hand Smoke Exposure: No service: No Review of Systems Const All systems reviewed & are unremarkable except as noted in HPI and below Physical Exam Vital Signs: BMI result Body Mass Index 33.6 Extrem Other: Patient is alert, oriented, and in no acute distress. Neuro: Normal sensation of the tips of all digits of the left hand at this time Vascular: Cap refill brisk Pain: Patient does report tenderness to palpation at the level of the fracture of the left middle finger ROM: Patient was unable to flex at the MCP joint of the left middle finger due to the presence of pins Skin: Well-healing lacerations noted on the middle and ring fingers of the left hand Pin sites clean, dry, intact No further redness noted General: No ecchymosis or other evidence of infection. Psych: Appears grossly normal Affect normal Attitude cooperative Results Reviewed Results Reviewed: X-rays obtained in the office today and independently reviewed by me, Kemar Figueroa PA-C, demonstrate surgically reduced fracture of the proximal phalanx of the left middle finger with all orthopedic hardware in place and in satisfactory clinical alignment and evidence of interval bony healing Assessment & Plan Assessment & Plan (1) Open fracture of finger of left hand: Code(s): S62.609B - Fracture of unspecified phalanx of unspecified finger, initial encounter for open fracture Category: Medical Plan 1. Open fracture of left middle finger 2 laceration of the left finger Status post I and D and ORIF DOS 06/21/2024 Patient appears to be recovering well postoperatively Patient is educated about the typical recovery course Pins pulled today without issue Patient is educated that it was the next 1-2 days, once the pin sites appear that they are closed, she can wash the pin sites with soap and water in the sink or the shower Patient was provided a Velcro wrist splint to wear with daytime activities as well as brenna tape to wear on the middle and ring fingers while away Patient is educated she should begin working on range of motion of the left hand, as her fingers have gotten quite stiff, and range of motion is improved while in the office today Referred to occupational therapy to begin working on range of motion and strengthening of the left hand 2 lb weight limit in left hand Patient will follow-up in 4 weeks, sooner with any acute concerns Orders: Orders OT Evaluation and Treatment Today S62.609B - Fracture of unspecified phalanx of unspecified finger, initial encounter for open fracture XR hand LT min 3V Today M79.642 - Pain in left hand Coding Level of Care Code Global (56124) Diagnoses Open fracture of finger of left hand S62.609B
== END 2024-07-27 15:19 | disposition home or self-care (01) ==
LOC: HO.HOS 14:39
DX: S62.609B Fracture of unspecified phalanx of unspecified finger, initial encounter for open fracture (principal)
CPT/HCPCS: 99024

== ENCOUNTER → 2024-07-27 14:43 | Outpatient (BNV) | payer OTHER, SELFPAY | PROVIDERS: Visit Provider Radiology Diagnostic Radiology | DX: S62.313D Displaced fracture of base of third metacarpal bone, left hand, subsequent encounter for fracture with routine healing (principal); Z96.7 Presence of other bone and tendon implants | CPT/HCPCS: 73130 ==

== ENCOUNTER 2024-08-21 08:06 | Outpatient (REF) | payer OTHER, SELFPAY ==
--- NOTE | ~2024-08-21 | XR_ITS ---
EXAMINATION: XR HAND, LEFT CLINICAL INFORMATION: M79.642 - Pain in left hand; attention to third digit. COMPARISON: 07/27/2024, 07/20/2024. TECHNIQUE: PA, lateral, and oblique views of the left hand. FINDINGS: Since the prior exam, 2 stabilizing K wires of the fracture of the proximal metadiaphysis, proximal phalanx, third digit, have been removed. There appears to be an acute fracture through the old fracture site, with increased dorsal angulation in comparison with prior radiographs. On the AP projection, fracture lines appear sharp and there is slightly increased displacement when compared with 07/27/2024. The remainder of the bones are intact and normally aligned. No soft tissue abnormalities. XR/XR hand LT min 3V IMPRESSION: 1. Suspect acute fracture through a healing old fracture of the proximal metadiaphysis, proximal phalanx, third digit. There is slightly increased displacement, new dorsal angulation (previously slightly volar), and slightly increased impaction. Electronically signed by: Dhruv Wright MD 08/21/2024 08:40 AM EDT
--- OUTSIDE RECORDS SUMMARY | 2024-08-21 08:12 | XMS_ITS | Data Portability ---
Author Organization [facility], [address] Address [address] [place] [address] Assessment No assessment recorded. Plan of Treatment Reminders Order Date Submit Date Provider Last Modified By Organization Details Last Modified Time Details Appointments None recorded. Lab None recorded. Referral None recorded. Procedures None recorded. Surgeries None recorded. Imaging None recorded. Medication Orders benzonatate 200 mg capsule 2023 [facility]/Pharmacy #[id number], [address] [facility], [place], [address], 4 10:49:40 Patient TargetsNo targets recorded. Patient Instructions Encounter Date Encounter Id Patient Instructions Last Modified By Organization Details Last Modified Time 03/02/2024 [id number] upper respirator y infection (cold): care instructions [...] Last Updated DateTime 165.1 cm 31.6 kg/m2 10294.5 5 g 0 66 /min 18 /min [...] SNOMED-CT Code Diagnosis ICD10 Code Diagnosis Note [id number] [address] [place] [address] 05/13/2017 12:24:01 05/13/2017 13:28:53 [id number] DIANNE Singer [address] [place] [address] 03/02/2024 10:36:02 03/02/2024 10:50:18 Upper respiratory infection 82993062 J06.9 Patient presented with symptoms of upper [...] Sheridan Member ID Guarantor Name 05/13/2017 1 [facility] [employer] [facility] [id number] Charlotte Pronovost [id number] Charlotte Pronovost 03/02/2024 1 [facility] [employer] [id number] Charlotte Pronovost [id number] Charlotte Pronovost Notes Date Note Type Note Provider Name and Address Organization Details Recorded Time 03/02/2024 text/html 48 y/o female he re with cough for the past month, started, then improved, then got worse a week ago again.Taking OTC meds with some improvement DIANNE Singer [address] [place], [address], [place] - [facility] 03/02/2024 10:52:33 OBGyn Episode No OBEpisode recorded.
--- OUTSIDE RECORDS SUMMARY | 2024-08-21 08:12 | XMS_ITS | Patient Health Record ---
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
== END 2024-08-21 08:07 | disposition home or self-care (01) ==
LOC: HO.HOSX 08:06
DX: M79.642 Pain in left hand (principal)
CPT/HCPCS: 73130

== ENCOUNTER 2024-08-21 08:20 | Outpatient (AMB) | payer OTHER, SELFPAY ==
--- NOTE | 2024-08-21 08:25 | MHC.OFFVIS ---
Intake Visit Reasons: PO I &D and ORIF of left MF, DOS 06/21/2024- w/xray Intake Note: Charlotte is a 48 year old right hand dominant female who presents today for a post operative visit s/p left middle finger I&D of open proximal phalanx fracture, left middle finger proximal phalanx fracture ORIF and left ring finger I&D, PIP joint DOS: 06/21/[address] Dione Palacios. Currently she has a 2lb weight limit and is wearing a velcro wrist splint and brenna tape. Patient reports that she is dong well and continuing to work with occupational therapy. She still struggles to fully extend the finger but it is improving. Reports no pain Allergies No Known Allergies Allergy (Verified 08/21/24 08:26) HPI HPI PO I &D and ORIF of left MF, DOS 06/21/2024- w/xray: Details: Charlotte is a 48 year old right hand dominant female who presents today for a post operative visit s/p left middle finger I&D of open proximal phalanx fracture, left middle finger proximal phalanx fracture ORIF and left ring finger I&D, PIP joint DOS: 06/21/[address] Dione Palacios. Currently she has a 2lb weight limit and is wearing a velcro wrist splint and brenna tape. Patient reports that she is dong well and continuing to work with occupational therapy. She still struggles to fully extend the finger but it is improving. Reports no pain PFSH Surgical History History of appendectomy H/O knee surgery Social History Household Members: Significant Other and Children Housing: House Do you presently have visiting nurse or other home services: No Patient Tobacco Use Status: Current someday Tobacco user Tobacco use type: Cigarette Second Hand Smoke Exposure: No service: No Review of Systems Const All systems reviewed & are unremarkable except as noted in HPI and below Physical Exam Extrem Other: Patient is alert, oriented, and in no acute distress. Neuro: Normal sensation of the tips of all digits of the left hand at this time Vascular: Cap refill brisk Pain: No tenderness to palpation at the level of the fracture of the left middle finger ROM: Patient was able to get close to making a closed fist with the left middle finger Skin: Well-healed lacerations noted on the middle and ring fingers of the left hand Pin sites clean, dry, intact No further redness noted General: No ecchymosis or other evidence of infection. Psych: Appears grossly normal Affect normal Attitude cooperative Assessment & Plan Assessment & Plan (1) Open fracture of finger of left hand: Code(s): S62.609B - Fracture of unspecified phalanx of unspecified finger, initial encounter for open fracture Category: Medical Plan 1. Open fracture of left middle finger 2 laceration of the left finger Status post I and D and ORIF DOS 06/21/2024 Patient appears to be recovering well postoperatively Patient is educated about the typical recovery course Patient is educated that she should follow-up with Dr. Palacios in the next 1-2 weeks Patient is educated she should continue working on range of motion of the left hand, as her fingers have gotten quite stiff, and range of motion is improved while in the office today Referred to occupational therapy to begin working on range of motion and strengthening of the left hand 2 lb weight limit in left hand Patient will follow-up in 1-2 weeks, sooner with any acute concerns Orders: Orders XR hand LT min 3V Today M79.642 - Pain in left hand Coding Level of Care Code Global (93811) Diagnoses Open fracture of finger of left hand S62.609B
== END 2024-08-21 08:55 | disposition home or self-care (01) ==
LOC: HO.HOS 08:21
DX: S62.609B Fracture of unspecified phalanx of unspecified finger, initial encounter for open fracture (principal)
CPT/HCPCS: 99024

== ENCOUNTER → 2024-08-21 08:22 | Outpatient (BNV) | payer OTHER, SELFPAY | PROVIDERS: Visit Provider Radiology Diagnostic Radiology | DX: S62.633A Displaced fracture of distal phalanx of left middle finger, initial encounter for closed fracture (principal) | CPT/HCPCS: 73130 ==

== ENCOUNTER 2024-09-04 10:20 | Outpatient (AMB) | payer OTHER, SELFPAY ==
--- NOTE | 2024-09-04 10:35 | MHC.OFFVIS ---
Vital Signs 09/04/24 10:36 Height 5 ft 6 in Weight 206 lb BMI 33.2 Intake Visit Reasons: PO I &D and ORIF of left MF, DOS 06/21/2024- w/xray Intake Note: Charlotte Geiger 48 yr old right hand dominant female, presents today for her P/O visit for her left hand MF I&D & ORIF DOS 06/21/24. Patient reports she is feeling better. She is still working with occupational therapy and showing improvements. Allergies No Known Allergies Allergy (Verified 09/04/24 10:35) HPI HPI PO I &D and ORIF of left MF, DOS 06/21/2024- w/xray: Details: Charlotte is a 49 year old right hand dominant woman who presents S/P left middle fingerproximal phalanx I&D, ORIF, and ring finger PIP joint OI&D, DOI: 06/21/24. She says she is doing well. She continues to have difficulty with stiffness & limited ROM, but she has been attending OT hand therapy and working on her ROM exercises as instructed. [facility] Surgical History History of appendectomy H/O knee surgery Social History Household Members: Significant Other and Children Housing: House Do you presently have visiting nurse or other home services: No Patient Tobacco Use Status: Current someday Tobacco user Tobacco use type: Cigarette Second Hand Smoke Exposure: No service: No Review of Systems Const All systems reviewed & are unremarkable except as noted in HPI and below Physical Exam Vital Signs: BMI result Body Mass Index 33.2 Const General: no acute distress and alert Orientation/consciousness: patient oriented x3 Neuro General: patient oriented x3 Extrem Other: Evaluation of Left Upper Extremity: The patient is alert, oriented, and in no acute distress Neuro: Median, Ulnar, Radial nerves motor and sensory intact and sensation is normal to the tips of all digits Vascular: Cap refill brisk ROM: Initially she could almost bring her middle finger closed to a fist and back into extension. She could bring her other fingers closed to a fist and back into extension We worked on ROM exercises today in clinic. Before leaving clinic, she could bring her fingertips almost to her palm, and passively bring the PIP joint almost into full extension. The PIP joint was otherwise held with about 30 degrees of flexion, but again is passively reducible almost to full extension Fracture itself is completely nontender to palpation, even firm palpation. The patient also reports her hand is feeling much better Radiographs: Radiographs from 07/27/24 & 08/21/24 were reviewed by me today in clinic. Between these dates the K-wires were removed, and the patient developed some displacement at the fracture site, with some mild ulnar displacement and development of an ~10 degree apex volar deformity 3 views of the left hand were taken, viewed, and compared to radiographs from 08/21/24 today in clinic. No further displacement seen, and some evidence of interval bony healing. No evidence of Osteomyelitis Psych Appearance: grossly normal Affect: normal affect Attitude: cooperative Assessment & Plan Assessment & Plan (1) Stiffness of left hand joint: Code(s): M25.642 - Stiffness of left hand, not elsewhere classified Category: Medical (2) Open fracture of finger of left hand: Code(s): S62.609B - Fracture of unspecified phalanx of unspecified finger, initial encounter for open fracture Category: Medical Plan Assessment & Plan: 1. Left middle finger proximal phalanx fracture, Open S/P I&D & ORIF, DOS: 06/21/24 With an ~10 degree apex volar angular deformity that developed after removal of the K-wires in July. No change in alignment since the 08/21/2024 radiographs, now with good clinical and radiographic evidence of interval bony healing. 2. Left ring finger laceration, S/P PIP joint I&D DOS: 06/21/24 3. Left middle finger PIP joint stiffness I educated her about these conditions She has been wearing her splint as instructed & has been attending OT hand therapy I discussed activity modification, she is to use her left hand for lightweight activities. She is to avoid any heavy lifting, ball sports, impact activities, or activities prone to falling for the next few weeks. She will continue to work on ROM exercises at home, and attend OT hand therapy She will continue to wear her splint when out of the house with daily activities She will follow up in 6-8 weeks for a ROM check. Scribed for Dione Palacios MD by En Case medical lab assistant, on 09/04/24 at 11:00 AM, EST. Orders: Orders XR hand LT min 3V Today M79.642 - Pain in left hand Coding Level of Care Code Global (76842) Diagnoses Stiffness of left hand joint M25.642 Open fracture of finger of left hand S62.609B
[2024-09-04 10:36] VITALS: BMI 33.2
--- OUTSIDE RECORDS SUMMARY | 2024-09-04 11:33 | XMS_ITS | Patient Health Record ---
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
--- OUTSIDE RECORDS SUMMARY | 2024-09-04 11:33 | XMS_ITS | Data Portability ---
Author Organization [facility] Vallada[facility] [address] Address [address] [place] [address] Assessment No assessment recorded. Plan of Treatment Reminders Order Date Submit Date Provider Last Modified By Organization Details Last Modified Time Details Appointments None recorded. Lab None recorded. Referral None recorded. Procedures None recorded. Surgeries None recorded. Imaging None recorded. Medication Orders benzonatate 200 mg capsule 2023 [facility]/Ph[facility]acy #[id number], [address] [facility], [place], [address], 10:49:40 Patient TargetsNo targets recorded. Patient Instructions Encounter Date Encounter Id Patient Instructions Last Modified By Organization Details Last Modified Time 03/02/2024 [id number] upper respirator y infection (cold): care instructions [...] height Body mass index (BMI) Body weight Heart rate Respiratory rate Body temperature Oxygen saturation Oxygen saturation in Arterial blood by Pulse oximetry Systolic blood pressure Diastolic blood pressure Provider Name and Address Organization Details Last Updated DateTime 4 165.1 cm 31.6 kg/m2 51703.5 5 g 66 /min 18 /min 98.7 [degF] 99 % 99 % 124 mm[Hg] 87 mm[Hg] Lisa Romero [employer] [facility] 10:41:18 Social History Question Answer Notes LastModified by Organizat ion Details LastModified Time Tobacco Smoking Status Never Smoker DI[facility]NE [facility] 03/02/2024 10:40:07 Have You Had A Flu Shot This Season? No Information not available 03/02/2024 If No, Would You Like A Flu Shot Today? No Information not available 03/02/2024 What Was The Date Of Your Most Recent Tobacco Screening? 03/02/2024 Information not available 03/02/2024 Have You Recently Traveled Abroad? No Information not available 03/02/2024 Sex: Unknown Functional Status Question Answer Note LastModified by Organizat ion Details LastModified Time Do you use any illicit or recreational drugs? Yes Information not available 03/02/2024 Do you or have you ever used any other forms of tobacco or nicotine? No Information not available 03/02/2024 What is your level of alcohol consumption? Occasional Information not available 03/02/2024 Mental Status None recorded. Family History Relationship [...] SNOMED-CT Code Diagnosis ICD10 Code Diagnosis Note [id number] _[address] [place] [address] 05/13/2017 12:24:01 05/13/2017 13:28:53 [id number] DIANNE Singer [address] [place] [address] 03/02/2024 10:36:02 03/02/2024 10:50:18 Upper respiratory infection [id number] J06.9 Patient presented with symptoms of upper [...] Recorded Advance Directives Directive None Recorded Payers Insurance Date Sequence Insurance Name Policy Number Policy Sheridan Covered Member ID Sheridan Member ID Guarantor Name 03/02/[address] [facility] [id number] Charlotte Lomax [id number] Charlotte Lomax Notes Date Note Type Note Provider Name and Address Organization Details Recorded Time 03/02/2024 text/html 48 y/o female he re with cough for the past month, started, then improved, then got worse a week ago again.Taking OTC meds with some improvement DIANNE Singer [address] [place], [address], [place] [facility] 03/02/2024 10:52:33 OBGyn Episode No OBEpisode recorded.
== END 2024-09-04 11:20 | disposition home or self-care (01) ==
LOC: HO.HOS 10:20
PROVIDERS: Visit Provider Orthopaedic Surgery
DX: M25.642 Stiffness of left hand, not elsewhere classified (principal); S62.609B Fracture of unspecified phalanx of unspecified finger, initial encounter for open fracture
CPT/HCPCS: 99024

== ENCOUNTER → 2024-09-04 10:21 | Outpatient (BNV) | payer OTHER, SELFPAY | PROVIDERS: Visit Provider Radiology Diagnostic Radiology | DX: S62.613D Displaced fracture of proximal phalanx of left middle finger, subsequent encounter for fracture with routine healing (principal) | CPT/HCPCS: 73130 ==

== ENCOUNTER 2024-09-04 11:28 | Outpatient (REF) | payer OTHER, SELFPAY ==
--- NOTE | ~2024-09-04 | XR_ITS ---
CLINICAL HISTORY: M79.642 - Pain in left hand --- Additional Notes or Special Instructions: Please ma ke sure you get a good lateral of the base of the middle finger. Left hand three views Comparison: 08/21/2024 Findings: Unchanged fracture base of 3rd proximal phalanx. Alignment is unchanged from previous study. No new bony abnormalities identified. Impression: Healing 3rd proximal phalanx fracture This document has been electronically signed by: Julius Mueller MD on 09/04/2024 21:38:18
--- OUTSIDE RECORDS SUMMARY | 2024-09-05 12:51 | XMS_ITS | Patient Health Record ---
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
== END 2024-09-04 11:29 | disposition home or self-care (01) ==
LOC: HO.HOSX 11:28
PROVIDERS: Visit Provider Orthopaedic Surgery
DX: M79.642 Pain in left hand (principal); S62.613D Displaced fracture of proximal phalanx of left middle finger, subsequent encounter for fracture with routine healing
CPT/HCPCS: 73130

== ENCOUNTER 2024-09-06 14:31 | Outpatient (RCR) | payer OTHER, SELFPAY ==
--- NOTE | 2024-08-08 14:08 | MHC.OT.EP ---
[address] [phone] Occupational Therapy Plan of Care Patient Name: Charlotte Lomax Date of Evaluation: 08/08/24 Diagnosis: Left D3 Prox Phalanx CRPP and I&D, D4 I&D Pain Location: 4/10 sore through middle finger proximal phalanx, some pain through palm and hand dorsum Pain Score: 4 Pain Scale Used: Numeric (0 - 10) Aggravating Factors: Forceful use, lifting, holding Alleviating Factors: Ibuprofen, ice Assessment: 48 yo female was stopping dogs from fighting, resulting in left hand trauma. She is now post-op left D3 Prox Phalanx CRPP and I&D, D4 I&D 06/21/24 w/ Dr Palacios. She was casted then placed in prefab orthosis, but has not been wearing recently, hoping to get more wrist range and she was brenna taping fingers. She is about 7 weeks post-op today on OT assessment and presents w/ decreased left middle finger PIP flexion and extension w/ some tightness in MCP and DIP flexion. She continues to have high edema through digit and hand dorsum with moderate pain with light use. She is very motivated for therapy and has been doing ROM exercises since pins removed. I anticipate she will progress well through course of OT. Frequency and Duration: The patient will be seen 1x/wk for 4 weeks (one hour visits) Short Term Goals: Ind w/ HEP D3 PIP ext to 20 degrees D3 tip-palm AROM Progress to light hand strengthening Detention Goals: Full composite digit flexion D3 PIP ext 10 degrees or less Pt to demo good use of left hand w/ opening containers and forceful bimanual tasks PIP edema <6.8 cm QuickDASH score <10 Treatment Plan: Therapeutic Exercise Therapeutic Activity Home Exercise Program Splinting Patient Education Desensitization/Sensory Re-ed Edema Control ADL Training Paraffin Fluidotherapy MHP Cold Packs Joint Mobilization Soft Tissue Mobilization Kinesiotaping Nighttime PIP ext orthosis Electronically Signed By: Jessica Duke, OTR/L CHT Please Sign and return to therapist. Thank you once again for your referral.
--- NOTE | 2024-08-30 14:01 | MHC.OT.OP ---
[address] [phone] F: [phone] Occupational Therapy Progress Note Patient Name: Charlotte Lomax Diagnosis: Left D3 Prox Phalanx CRPP and I&D, D4 I&D Date of Surgery: 06/21/24 Date of Evaluation: 08/08/24 Treatments to Date: 4 Subjective: When I wake up its so stiff The swelling and stiffness is a lot but it's not keeping me from working it Pain Score: 2 Pain Location: pain free at rest, low pain w/ movement Objective Measures: Gross grasp Left 45lb 1 cm tip-palm middle finger pre treatment-> active tip-palm after treatment MCP 0/74 PIP 20/80 DIP 0/70 Status: Progressing Assessment: 10 weeks post-op, steady improvements in all range and strength. Good follow through w/ HEP and now progressing w/ with strengthening. Very motivated. Still w/ slight extension lag/PIP flex contracture, but improving and wearing nighttime extension orthosis for low load passive stretch. Short Term Goals: Ind w/ HEP D3 PIP ext to 20 degrees D3 tip-palm AROM Progress to light hand strengthening Mcfp Goals: Full composite digit flexion D3 PIP ext 10 degrees or less Pt to demo good use of left hand w/ opening containers and forceful bimanual tasks PIP edema <6.8 cm QuickDASH score <10 Frequency and Duration: The patient will be seen 1x/wk for 4 weeks Treatment Plan: Therapeutic Exercise Therapeutic Activity Home Exercise Program Splinting Patient Education Edema Control ADL Training Paraffin Fluidotherapy MHP Cold Packs Joint Mobilization Soft Tissue Mobilization Kinesiotaping Hour long visits, able to demo good carry over w/ HEP Electronically Signed By: Jessica Duke, OTR/L CHT Reviewed/agree with student documentation: Therapist:
--- NOTE | 2024-10-26 09:12 | MHC.OT.DC ---
[address] [phone] F: [phone] Occupational Therapy Discharge Note Patient Name: Charlotte Lomax Provider: Kemar Figueroa PA-C Diagnosis: Left D3 Prox Phalanx CRPP and I&D, D4 I&D Date of Surgery: 06/21/24 Date of Evaluation: 08/08/24 Treatments to Date: 5 Discharge Status: Improved Function Independent with HEP Discharge Summary: Charlotte was referred to OT post-op left middle finger prox phalanx fracture CRPP. She has done well w/ course of OT, continued to have some tightness in middle finger, but able to make a full fist. She has returned to work and has been focusing on home program, has not followed up for further OT visits in the past month, we will be discharging from services at this time. Electronically Signed By: Jessica Duke OTR/Mily CHT Reviewed/agree with student documentation: Therapist: Please Sign and return to therapist, thank you for your referral.
== END 2024-10-26 09:13 | disposition home or self-care (01) ==
LOC: HO.OT 14:31
DX: S62.601D Fracture of unspecified phalanx of left index finger, subsequent encounter for fracture with routine healing (principal)
CPT/HCPCS: 97110; 97140; 97165

== ENCOUNTER 2024-10-24 08:32 | Outpatient (AMB) | payer OTHER, SELFPAY ==
[2024-10-24 08:35] VITALS: BMI 32.8
--- NOTE | 2024-10-24 08:35 | A.OFFVIS_ITS ---
Vital Signs 10/24/24 08:35 Height 5 ft 6 in Weight 203 lb BMI 32.8 Intake Visit Reasons: OV-I &D and ORIF of left MF, DOS 06/21/2024 Intake Note: Charlotte Geiger 48 yr old right hand dominant female, presents today for her follow up visit for her left hand MF I&D & ORIF DOS 06/21/24. She has been wearing her splint as instructed & has been attending OT hand therapy. At her last visit she was advised she is to use her left hand for lightweight activities, avoid any heavy lifting, She will continue to work on ROM exercises at home, attend OT hand therapy and continue to wear her splint when out of the house with daily activities. Currently states she has discontinued O.T 1 month ago and has been working on her ROM on her own with good improvement. Allergies No Known Allergies Allergy (Verified 10/24/24 08:47) HPI HPI OV-I &D and ORIF of left MF, DOS 06/21/2024: Details: Charlotte is a 49 year old right hand dominant woman who presents S/P left middle finger proximal phalanx I&D, ORIF, and ring finger PIP joint OI&D, DOI: 06/21/24. She says she is doing well and denies any pain. She has completed OT hand therapy and has been working on her ROM exercises as instructed. She has improved her ROM & stiffness. She has discontinued her finger splint. 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 You can see she has a slight extension deformity of the proximal phalanx. Rotational malalignment. Fracture itself is completely nontender to palpation, even firm palpation. She could make a tight fist with good strength and no pain. She has a slight extensor lag at the PIP joint of maybe 5-10 degrees which is passively reducible to full extension. She is happy with the function of her hand Psych Appearance: grossly normal Affect: normal affect Attitude: cooperative Assessment & Plan Assessment & Plan (1) Stiffness of left hand joint: Code(s): M25.642 - Stiffness of left hand, not elsewhere classified Category: Medical (2) Open fracture of finger of left hand: Code(s): S62.609B - Fracture of unspecified phalanx of unspecified finger, initial encounter for open fracture Category: Medical Plan Assessment & Plan: 1. Left middle finger proximal phalanx fracture, Open S/P I&D & ORIF, DOS: 06/21/24 With an ~10 degree apex volar angular deformity that developed after removal of the K-wires in July. Good bony healing since that time. 2. Left ring finger laceration, S/P PIP joint I&D DOS: 06/21/24 3. Left middle finger PIP joint stiffness She is doing well in his happy with her hand function. She should continue to work on ROM exercises at home She is cleared for all activities. She will follow up prn Scribed for Dione Palacios MD by En Case, medical surgery nurse, on 10/24/24 at 8:45 AM, EST. Coding Level of Care Code Est Pt Level 3 (30810) Diagnoses Stiffness of left hand joint M25.642 Open fracture of finger of left hand S62.609B
--- OUTSIDE RECORDS SUMMARY | 2024-10-24 08:46 | XMS_ITS | Patient Health Record ---
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
== END 2024-10-24 09:11 | disposition home or self-care (01) ==
LOC: HO.HOS 08:33
PROVIDERS: Visit Provider Orthopaedic Surgery
DX: M25.642 Stiffness of left hand, not elsewhere classified (principal); S62.609B Fracture of unspecified phalanx of unspecified finger, initial encounter for open fracture
CPT/HCPCS: 99213